=== PATIENT | male | born 1995 | race Caucasian/White ===

== ENCOUNTER 2018-06-26 19:58 | Inpatient (IN) | payer SELFPAY, OTHER ==
[2018-06-26] MEDS ORDERED: ALBUTEROL 0.083% (NEB) 2.5 MG/3 ML AMP (20:05)
[2018-06-26] MEDS ORDERED: EPINEPHrine 1 MG INJ ×2 (20:05→20:06)
[2018-06-26] MEDS: ALBUTEROL 0.5% (NEB) 2.5 MG/0.5 ML AMP INH (20:05)
[2018-06-26] MEDS ORDERED: IPRATROPIUM (NEB) 0.5 MG/2.5 ML AMP (20:05)
[2018-06-26] MEDS: MAGNESIUM SULFATE 2 GM/50 ML 50 ML IVPB (20:08)
[2018-06-26 20:15] LABS: ADD MAN DIFF? NO
[2018-06-26] MEDS: SOD CHLORIDE 0.9% 1,000 ML IV ×4 (20:19→23:27)
[2018-06-26] MEDS: DEXAMETHASONE 10 MG/ML 1 ML INJ IV (20:19)
[2018-06-26] MEDS: EPINEPHrine 1 MG INJ IM (20:19)
[2018-06-26 20:20] LABS: ABNORMAL IP MESSAGE 1; BASOPHIL # 0.2 10^3/ul (0.0-0.1); BASOPHILS % 1.1 % (0.0-2.0); EOSINOPHILS # 0.8 10^3/ul (0.0-0.5); EOSINOPHILS % 4.6 % (0.0-7.0); HEMATOCRIT 47.8 % (42.0-52.0); LYMPHOCYTES # 6.7 10^3/ul (0.8-2.9); LYMPHOCYTES % 38.1 % (15.0-51.0); MEAN CORPUSCULAR HEMOGLOBIN 29.2 pg (29.0-33.0); MEAN CORPUSCULAR HGB CONC 33.5 g/dl (32.0-37.0); MEAN CORPUSCULAR VOLUME 87.2 fl (82.0-101.0); MEAN PLATELET VOLUME 10.7 fl (7.4-10.4); MONOCYTE # 1.1 10^3/ul (0.3-0.9); MONOCYTES % 6.2 % (0.0-11.0); NEUTROPHIL # 8.6 10^3/ul (1.6-7.5); NEUTROPHILS % 49.1 % (39.0-77.0); PLATELET COUNT 349 10^3/UL (140-415); POSITIVE DIFF @See below; RED BLOOD COUNT 5.48 10^6/ul (4.70-6.10); RED CELL DISTRIBUTION WIDTH 12.6 % (11.5-14.5)
[2018-06-26 20:20] LABS: WHITE BLOOD COUNT 17.5 10^3/ul (4.8-10.8)
[2018-06-26] MEDS: ALBUTEROL 0.083% (NEB) 2.5 MG/3 ML AMP HHN (20:21)
[2018-06-26] MEDS: IPRATROPIUM (NEB) 0.5 MG/2.5 ML AMP INH (20:21)
[2018-06-26 20:28] LABS: ANION GAP 22 (5-13); BLOOD UREA NITROGEN 15 mg/dl (7-20); CALCIUM 8.9 mg/dl (8.4-10.2); CARBON DIOXIDE 14 mmol/L (21-31); CHLORIDE 108 mmol/L (97-110); CREATININE 1.23 mg/dl (0.61-1.24); Estimated GFR > 60 mL/min (>60); GLUCOSE 161 mg/dl (70-220); POTASSIUM 3.7 mmol/L (3.5-5.1); SODIUM 144 mmol/L (135-144)
[2018-06-26] MEDS: CEFTRIAXONE 1 GM/50 ML (PMX) 50 ML IVPB (21:46)
[2018-06-26] MEDS ORDERED: ONDANSETRON 4 MG INJ IV (22:30)
[2018-06-26] MEDS ORDERED: ALBUTEROL 0.083% (NEB) 2.5 MG/3 ML AMP NEB (22:30)
[2018-06-26] MEDS: AZITHROMYCIN 500MG/NS (PMX) 250 ML IV (22:31)
[2018-06-26] MEDS: METHYLPREDNISOLONE 40 MG INJ IV (23:26)
[2018-06-27 00:42] LABS: AMPHETAMINE/METHAMPHETAMINE Negative (NEGATIVE); BARBITURATES Negative (NEGATIVE); BENZODIAZEPINES Negative (NEGATIVE); CANNABINOIDS Positive (NEGATIVE); COCAINE Negative (NEGATIVE); OPIATES Negative (NEGATIVE)
[2018-06-27] MEDS: SOD CHLORIDE 0.9% 1,000 ML IV ×5 (00:57→18:30)
[2018-06-27] MEDS: NACL 3% FOR INHALATION 15 ML NEBU NEB (01:00)
[2018-06-27 01:32] LABS: CREATINE KINASE 184 IU/L (23-200)
[2018-06-27 01:37] LABS: LACTIC ACID 3.8 mmol/L (0.5-2.0)
[2018-06-27 01:39] LABS: D-DIMER 248.22 ng/ml (<460)
[2018-06-27 01:45] LABS: CK INDEX 0.6; CK-MB 1.13 ng/ml (0.0-2.4); TROPONIN-I 0.019 ng/ml (0.000-0.120)
[2018-06-27] MEDS: ALBUTEROL 0.083% (NEB) 2.5 MG/3 ML AMP NEB ×6 (02:03→20:54)
[2018-06-27] MEDS: IPRATROPIUM (NEB) 0.5 MG/2.5 ML AMP NEB ×2 (02:03→06:02)
[2018-06-27 02:13] LABS: AADO2 Arterial 56.4 mmHg (7.0-24.0); Allen Test ACCEPTAB; Arterial Base Excess -7.3 mmol/L (-3.0-3); Arterial Blood Gas Oxygen Sat 91.2 mmHG (95.0-98.0); Arterial COHb 0.1 % (0.0-3.0); Arterial Fraction of Oxyhgb 90.7 % (93.0-99.0); Arterial HCO3 16.6 mmol/L (22.0-26.0); Arterial MetHb 0.4 % (0.0-1.5); Arterial Total Hemglobin 14.8 g/dl (12.0-18.0); Arterial pCO2 29.7 mmhg (35-45); MODE ROOM AIR; Site Left Radial
[2018-06-27 05:26] LABS: ADD MAN DIFF? NO
[2018-06-27 05:29] LABS: ABNORMAL IP MESSAGE 1; BASOPHILS % 0.3 % (0.0-2.0); HEMATOCRIT 41.2 % (42.0-52.0); HEMOGLOBIN 13.6 g/dl (14.0-18.0); LYMPHOCYTES # 0.5 10^3/ul (0.8-2.9); LYMPHOCYTES % 4.7 % (15.0-51.0); MEAN CORPUSCULAR HEMOGLOBIN 28.8 pg (29.0-33.0); MEAN CORPUSCULAR VOLUME 87.1 fl (82.0-101.0); MEAN PLATELET VOLUME 10.5 fl (7.4-10.4); MONOCYTE # 0.1 10^3/ul (0.3-0.9); NEUTROPHIL # 10.6 10^3/ul (1.6-7.5); NEUTROPHILS % 93.2 % (39.0-77.0); PLATELET COUNT 234 10^3/UL (140-415); POSITIVE DIFF @See below; RED BLOOD COUNT 4.73 10^6/ul (4.70-6.10); RED CELL DISTRIBUTION WIDTH 12.6 % (11.5-14.5)
[2018-06-27 05:29] LABS: WHITE BLOOD COUNT 11.4 10^3/ul (4.8-10.8)
[2018-06-27 05:42] LABS: HEMOGLOBIN A1C 5.1 % (0-5.9)
[2018-06-27] MEDS: PANTOPRAZOLE 40 MG INJ IV (05:46)
[2018-06-27] MEDS: METHYLPREDNISOLONE 40 MG INJ IV ×3 (05:46→22:00)
[2018-06-27 05:56] LABS: CREATINE KINASE 221 IU/L (23-200)
[2018-06-27 06:01] LABS: ALANINE AMINOTRANSFERASE 24 IU/L (13-69); ALBUMIN/GLOBULIN RATIO 1.81; ALKALINE PHOSPHATASE 86 IU/L (42-121); ANION GAP 11 (5-13); ASPARTATE AMINO TRANSFERASE 26 IU/L (15-46); BILIRUBIN,INDIRECT 0.3 mg/dl (0-1.1); BILIRUBIN,TOTAL 0.3 mg/dl (0.2-1.3); BLOOD UREA NITROGEN 12 mg/dl (7-20); CALCIUM 8.8 mg/dl (8.4-10.2); CARBON DIOXIDE 18 mmol/L (21-31); CHLORIDE 114 mmol/L (97-110); CREATININE 0.71 mg/dl (0.61-1.24); Estimated GFR > 60 mL/min (>60); GLUCOSE 152 mg/dl (70-220); POTASSIUM 4.8 mmol/L (3.5-5.1); SODIUM 143 mmol/L (135-144); TOTAL PROTEIN 6.2 g/dl (6.1-8.1)
[2018-06-27 06:05] LABS: CK INDEX 0.8; CK-MB 1.79 ng/ml (0.0-2.4)
[2018-06-27 06:09] LABS: TROPONIN-I < 0.012 ng/ml (0.000-0.120)
[2018-06-27 06:18] LABS: LACTIC ACID 3.3 mmol/L (0.5-2.0)
[2018-06-27 06:24] LABS: THYROID STIMULATING HORMONE 0.251 MIU/L (0.465-4.680)
[2018-06-27 07:54] LABS: FREE T3 3.29 pg/ml (2.77-5.27); FREE T4 (FREE THYROXINE) 0.81 ng/dl (0.79-2.35)
[2018-06-27 08:50] LABS: AADO2 Arterial 167.4 mmHg (7.0-24.0); Allen Test ACCEPTAB; Arterial Base Excess -6.2 mmol/L (-3.0-3); Arterial COHb 0.3 % (0.0-3.0); Arterial Fraction of Oxyhgb 90.5 % (93.0-99.0); Arterial HCO3 17.3 mmol/L (22.0-26.0); Arterial MetHb 0.2 % (0.0-1.5); Arterial Total Hemglobin 15.1 g/dl (12.0-18.0); Arterial pCO2 29.3 mmhg (35-45); MODE NASAL CANNULA; Site Left Radial
[2018-06-27] MEDS: ENOXAPARIN 40 MG/0.4 ML SYG SC (09:28)
[2018-06-27 09:55] LABS: ADD UMIC NO; UR ASCORBIC ACID NEGATIVE (NEGATIVE); UR BILIRUBIN (Dip) NEGATIVE (NEGATIVE); UR BLOOD (Dip) NEGATIVE (NEGATIVE); UR CLARITY CLEAR (CLEAR); UR COLOR COLORLESS (YELLOW); UR GLUCOSE (Dip) 1+ mg/dL (NEGATIVE); UR KETONES (Dip) NEGATIVE (NEGATIVE); UR LEUKOCYTE ESTERASE (Dip) NEGATIVE Leu/ul (NEGATIVE); UR NITRITE (Dip) NEGATIVE (NEGATIVE); UR SPECIFIC GRAVITY (Dip) 1.008 (1.003-1.030); UR TOTAL PROTEIN (Dip) NEGATIVE (NEGATIVE); UR UROBILINOGEN (Dip) NEGATIVE (NEGATIVE)
[2018-06-27 10:04] LABS: CHOLESTEROL 187 mg/dl (100-200)
[2018-06-27 10:04] LABS: CHOL/HDL RATIO 3.8 RATIO; HDL CHOLESTEROL 48 mg/dl (30-63); LDL CHOLESTEROL,CALCULATED 121 mg/dl; TRIGLYCERIDES 92 mg/dl (0-149)
[2018-06-27 10:10] LABS: LACTIC ACID 3.6 mmol/L (0.5-2.0)
[2018-06-27] MEDS: ACETAMINOPHEN 650MG/20.3ML CUP PO (11:27)
[2018-06-27 12:13] LABS: LACTIC ACID 1.7 mmol/L (0.5-2.0)
[2018-06-27 15:02] LABS: AADO2 Arterial 93.2 mmHg (7.0-24.0); Allen Test ACCEPTAB; Arterial Blood Gas Oxygen Sat 96.8 mmHG (95.0-98.0); Arterial COHb 0.3 % (0.0-3.0); Arterial Fraction of Oxyhgb 96.2 % (93.0-99.0); Arterial HCO3 18.2 mmol/L (22.0-26.0); Arterial MetHb 0.3 % (0.0-1.5); Arterial Total Hemglobin 15.1 g/dl (12.0-18.0); Arterial pCO2 29.6 mmhg (35-45); MODE NASAL CANNULA; Site Left Radial
[2018-06-27] MEDS: CEFTRIAXONE 2 GM/50 ML (PMX) 50 ML IVPB (20:49)
[2018-06-27] MEDS: AZITHROMYCIN 250 MG in SOD CHLORIDE 0.9% 250 ML IVPB (22:00)
[2018-06-28] MEDS: ALBUTEROL 0.083% (NEB) 2.5 MG/3 ML AMP NEB ×4 (01:33→11:38)
[2018-06-28] MEDS: PANTOPRAZOLE 40 MG INJ IV (05:08)
[2018-06-28] MEDS: METHYLPREDNISOLONE 40 MG INJ IV ×2 (05:08→14:27)
[2018-06-28] MEDS: SOD CHLORIDE 0.9% 1,000 ML IV ×2 (05:14→14:30)
[2018-06-28 05:18] LABS: ADD MAN DIFF? NO
[2018-06-28 05:22] LABS: WHITE BLOOD COUNT 18.1 10^3/ul (4.8-10.8)
[2018-06-28 05:22] LABS: BASOPHILS % 0.2 % (0.0-2.0); HEMATOCRIT 43.1 % (42.0-52.0); HEMOGLOBIN 14.1 g/dl (14.0-18.0); LYMPHOCYTES % 5.5 % (15.0-51.0); MEAN CORPUSCULAR HEMOGLOBIN 28.7 pg (29.0-33.0); MEAN CORPUSCULAR HGB CONC 32.7 g/dl (32.0-37.0); MEAN CORPUSCULAR VOLUME 87.8 fl (82.0-101.0); MEAN PLATELET VOLUME 10.3 fl (7.4-10.4); MONOCYTE # 0.9 10^3/ul (0.3-0.9); MONOCYTES % 5.2 % (0.0-11.0); NEUTROPHILS % 88.1 % (39.0-77.0); PLATELET COUNT 272 10^3/UL (140-415); RED BLOOD COUNT 4.91 10^6/ul (4.70-6.10); RED CELL DISTRIBUTION WIDTH 13.2 % (11.5-14.5)
[2018-06-28 05:46] LABS: PHOSPHORUS 3.6 mg/dl (2.5-4.9)
[2018-06-28 05:46] LABS: MAGNESIUM 2.1 mg/dl (1.7-2.5)
[2018-06-28 05:49] LABS: ANION GAP 11 (5-13); BLOOD UREA NITROGEN 14 mg/dl (7-20); CALCIUM 9.5 mg/dl (8.4-10.2); CARBON DIOXIDE 21 mmol/L (21-31); CHLORIDE 112 mmol/L (97-110); CREATININE 0.74 mg/dl (0.61-1.24); Estimated GFR > 60 mL/min (>60); GLUCOSE 147 mg/dl (70-220); POTASSIUM 4.1 mmol/L (3.5-5.1); SODIUM 144 mmol/L (135-144)
[2018-06-28] MEDS: ENOXAPARIN 40 MG/0.4 ML SYG SC ×2 (09:00→12:52)
[2018-06-28] MEDS: IBUPROFEN 600 MG TAB PO (14:27)
== END 2018-06-28 15:40 | disposition home or self-care (01) | DRG 871 ==
LOC: ICU 22:13 → E/R 19:58 → 2NE 06-27 12:58
DX: A41.9 Sepsis, unspecified organism (principal); J18.9 Pneumonia, unspecified organism; J96.01 Acute respiratory failure with hypoxia; J45.901 Unspecified asthma with (acute) exacerbation; E87.2 Acidosis; Z68.41 Body mass index [BMI] 40.0-44.9, adult; E66.01 Morbid (severe) obesity due to excess calories; Y95 Nosocomial condition; F12.90 Cannabis use, unspecified, uncomplicated
CPT/HCPCS: 36600; 71045; 71250; 80048; 80053; 80061; 80307; 81003; 82550; 82553; 82803; 83036; 83605; 83735; 84100; 84439; 84443; 84481; 84484; 85025; 85378; 87040; 87081; 93005; 93970; 94640; 94644; 94664; 96374; 96375; 99291-25